=== PATIENT | female | born 1990 | race Caucasian/White ===

== ENCOUNTER 2021-09-23 07:16 | Emergency (ER) | payer OTHER ==
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
[2021-09-23 08:19] LABS: Urine Blood Negative (Negative); Urine Glucose Trace (Negative); Urine Protein Negative (Negative); Urine Specific Gravity 1.015 (1.005-1.030); Urine pH 5.5 (5.0-7.0)
[2021-09-23 08:26] LABS: Absolute Lymphocytes (CBC) 1.2 K/uL (0.7-4.9); Hematocrit 38.5 % (36.0-45.0); MPV 7.7 fL (7.6-11.3); RBC Red Blood Cell Count 4.76 M/uL (3.86-4.86)
[2021-09-23 08:31] LABS: Protime INR 1.02
[2021-09-23 08:42] LABS: Urine Specific Gravity/Preg 1.015 (1.005-1.030)
[2021-09-23 08:53] LABS: ALT/SGPT 42 U/L (12-78); AST/SGOT 21 U/L (15-37); Albumin 3.9 g/dL (3.4-5.0); Alkaline Phosphatase 81 U/L (45-117); BUN Blood Urea Nitrogen 8 mg/dL (7-18); Bicarbonate 21 mmol/L (21-32); Bilirubin Direct < 0.1 mg/dL (0-0.2); Bilirubin Total 0.2 mg/dL (0.2-1.0); Glomerular Filtration Rate 108 ml/min (=/>90); Glucose Level 108 mg/dL (74-106); Potassium 3.7 mmol/L (3.5-5.1); Protein, Total 7.6 g/dL (6.4-8.2); Sodium Level 141 mmol/L (136-145)
[2021-09-23 09:28] LABS: Barbiturates NEGATIVE (NEGATIVE); Benzodiazepines NEGATIVE (NEGATIVE); Cocaine NEGATIVE (NEGATIVE); METHAMPHETAM NEGATIVE (NEGATIVE); Methadone NEGATIVE (NEGATIVE); Opiates NEGATIVE (NEGATIVE); Phencyclidine NEGATIVE (NEGATIVE); THC Cannibis POSITIVE (NEGATIVE)
[2021-09-23 19:05] VITALS: TEMP 98.2; O2SAT 100
[2021-09-23 19:06] VITALS: BP 127/82
--- NOTE | 2021-09-27 12:27 | EKG ---
Test Date: 2021-09-23 Test Time: 07:49:16 [place] Placer: MB MEASUREMENT RESULTS: Intervals: Rate: 101 WY: 138 QRSD: 76 QT: 322 QTc: 417 [place]: P: 82 WY: 138 QRS: 79 T: 63 INTERPRETIVE STATEMENTS: Sinus tachycardia Otherwise normal ECG No previous ECG available for comparison Electronically Signed On 09-27-21 12:17:56 CDT by Nasim Funez
== END 2021-09-23 19:00 ==
LOC: ER 07:16
DX: R45.851 Suicidal ideations (principal); F32.A Depression, unspecified; Z20.822 Contact with and (suspected) exposure to COVID-19
CPT/HCPCS: 93005; 85025; 80048; 36415; 80320; 80329 ×2; 81025; 85610; 80076; 85730; 81003; 80307; 99284; U0003